=== PATIENT | male | born 2005 | race Two or more races ===

== ENCOUNTER 2024-02-23 18:58 | Emergency (ER) | payer SELFPAY ==
[2024-02-23 19:15] VITALS: BP 130/66; PULSE 114; RESP 18; TEMP 36.6; O2SAT 99
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
[2024-02-23 19:43] VITALS: BMI 25.0
[2024-02-23 19:45] VITALS: BP 128/76; PULSE 100; RESP 18; TEMP 36.8; O2SAT 99
== END 2024-02-23 19:49 ==
PROVIDERS: Emergency Provider Emergency Medicine
DX: Z02.89 Encounter for other administrative examinations (principal); Z04.1 Encounter for examination and observation following transport accident
CPT/HCPCS: 99281